=== PATIENT | male | born 1990 | race Caucasian/White ===

== ENCOUNTER 2017-05-19 07:37 | Outpatient (CLI) | payer OTHER ==
--- NOTE | 2017-05-19 10:55 | MRI Report ---
EXAM: LEFT ELBOW MRI WITHOUT CONTRAST EXAM DATE: 05/19/2017 08:37 AM. CLINICAL HISTORY: Left elbow biceps strain. ? Avulsion or strain of the muscle. COMPARISON: None. TECHNIQUE: Multiplanar, multisequence T1-weighted and fluid-sensitive sequences of the elbow without contrast. Other: None. FINDINGS: Bones: No fractures or subluxations. No marrow edema. No bone lesions. Articular Cartilage: Unremarkable. Ligaments: The ulnar collateral, lateral ulnar collateral, radial collateral, and annular ligaments a re intact. Tendons: The common extensor tendon appears normal. The distal biceps, brachialis, and triceps tendon s are unremarkable. The common flexor origin has increased T2 signal at its insertion. Musculature: There is increased T2 signal in the pronator teres and the common flexor origin consiste nt with a grade 1 strain. The medial collateral ligament complex appears unremarkable. The remaining muscles appear normal. Other: The cubital tunnel and ulnar nerve are unremarkable. No effusion. The subcutaneous tissues are unremarkable. IMPRESSION: 1. Grade 1 strain of the pronator teres and common flexor origin. 2. Biceps, triceps and brachialis appear normal. [facility] Referring Provider Line: [phone] SITE ID: [id number]
== END 2017-05-19 07:38 | disposition home or self-care (01) ==
LOC: DI 07:37
PROVIDERS: ATTEND Radiology Diagnostic Radiology
DX: S56.812A Strain of other muscles, fascia and tendons at forearm level, left arm, initial encounter (principal)

== ENCOUNTER 2017-07-06 10:56 | Emergency (ER) | payer OTHER ==
--- NOTE | 2017-07-06 11:46 | XRAY Preliminary Report ---
Exam: XR ANKLE 3 VIEW LT IMPRESSION: Soft tissue swelling; negative for fracture, bony injury or subluxation in the ankle radi ography. [facility] SITE ID: [id number]
--- NOTE | 2017-07-06 11:46 | XRAY Report ---
EXAM: LEFT ANKLE RADIOGRAPHY EXAM DATE: 07/06/2017 11:38 AM. CLINICAL HISTORY: Trauma. COMPARISON: None. TECHNIQUE: 3 views. FINDINGS: Bones: No fractures or bone lesions. Joints: No effusion. No subluxations. The ankle mortise is normally aligned. Soft Tissues: Diffuse mild ankle soft tissue swelling. IMPRESSION: Soft tissue swelling; negative for fracture, bony injury or subluxation in the ankle radi ography. [facility] Referring Provider Line: [phone] SITE ID: [id number]
--- NOTE | 2017-07-06 11:47 | XRAY Report ---
EXAM: LEFT FOOT RADIOGRAPHY EXAM DATE: 07/06/2017 11:38 AM. CLINICAL HISTORY: Trauma. COMPARISON: None. TECHNIQUE: 3 views. FINDINGS: Bones: No fractures or bone lesions. Joints: N no subluxations. Soft Tissues: There is diffuse mid-distal foot soft tissue swelling without radiopaque foreign body. IMPRESSION: Soft tissue swelling; negative for fracture, bony injury or radiopaque foreign body in th e left foot radiography. [facility] Referring Provider Line: [phone] SITE ID: [id number]
--- NOTE | 2017-07-06 12:55 | ED Physician Documentation ---
PD HPI LOWER EXT INJURY - Stated complaint Stated Complaint: LT FT INJURY - Chief complaint Chief Complaint: Ext Problem - History obtained from History obtained from: Patient, Family - History of Present Illness PD HPI LOW EXT INJURY LOCATION: Left, Foot Type of injury: Fall, Twist Where injury occurred: Street Timing - onset: Today Timing - duration: Minutes Timing - details: Abrupt onset, Still present Improved by: Rest, Ice, Immobilization Worsened by: Moving, Palpating Associated symptoms: Swelling. No: Weakness, Numbness Contributing factors: No: Anticoagulated Similar symptoms before: Has not had sx before Recently seen: Not recently seen - Additional information Additional information: 26-year-old male was skateboarding and went up on the side of the ramp and fell off of the ramp onto his left knee and twisted his foot underneath him. He has a lot of swelling on the dorsum of the foot and he is unable to bear weight. Review of Systems Constitutional: denies: Fever Eyes: denies: Decreased vision Ears: denies: Ear pain Nose: denies: Congestion Throat: denies: Sore throat Respiratory: denies: Cough GI: denies: Vomiting Skin: denies: Rash Musculoskeletal: reports: Extremity pain, Extremity swelling, Pain with weight bearing. denies: Neck pain, Back pain Neurologic: denies: Generalized weakness, Focal weakness, Numbness PD PAST MEDICAL HISTORY - Past Medical History Past Medical History: No - Past Surgical History Past Surgical History: Yes Ortho: Other - Present Medications Home Medications: Ambulatory Orders Medication Instructions Recorded Confirmed No Known Home Medications [No 07/06/17 07/06/17 Known Home Medications] - Allergies Allergies/Adverse Reactions: Allergies Allergy/AdvReac Type Severity Reaction Status Date / Time No Known Drug Allergies Allergy Verified 07/06/17 11:01 - Social History Does the pt smoke?: No Smoking Status: Never smoker Does the pt drink ETOH?: Yes Does the pt have substance abuse?: No - Immunizations Immunizations are current?: Yes PD ED PE NORMAL - Vitals Vital signs reviewed: Yes (normal ) - General General: Alert and oriented X 3, No acute distress, Well developed/nourished - HEENT HEENT: Atraumatic, PERRL, EOMI - Respiratory Respiratory: No respiratory distress - Derm Derm: Normal color, Warm and dry, No rash - Extremities Extremities: No deformity, Other (There is marked swelling to the dorsum of the left foot. There is no break in the skin. There is no significant tenderness to the medial or lateral malleoli. There is pain to the anterior ankle with flexion /extention of the foot. Distal n/v components are intact . The left knee is without swelling and a small abrasion. The ligaments are stable to testing. ) - Neuro Neuro: No motor deficit, No sensory deficit Eye Opening: Spontaneous Motor: Obeys Commands Verbal: Oriented GCS Score: 15 - Psych Psych: Normal mood, Normal affect Results - Vitals Vitals: Vital Signs - 24 hr 07/06/17 07/06/17 10:59 13:28 Temperature 36.3 C L Heart Rate 70 76 Respiratory 16 Rate Blood Pressure 107/37 L 110/72 O2 Saturation 100 Oxygen O2 Source Room air - Rads (name of study) left foot Radiology: Prelim report reviewed (Impression: Soft tissue swelling; negative for fracture, bony injury or radiopaque foreign body in the left foot radiography.), EMP read indepedently, See rad report Left ankle Radiology: Prelim report reviewed (Impression: Soft tissue swelling; negative for fracture, bony injury or subluxation of the ankle radiography.), EMP read indepedently, See rad report Procedures - Splint (location) left foot Splint applied by: Tech Type of splint: Fiberglass, Posterior Other: Patient tolerated well, No complications, Neurovascular intact, Good alignment, Crutches provided PD MEDICAL DECISION MAKING - ED course Complexity details: reviewed results, re-evaluated patient, considered differential, d/w patient, d/w family ED course: 26-year-old male with acute left foot injury has a lot of swelling to the dorsum of the foot he has no evidence of fracture on x-ray examination he is placed into a posterior splint and onto crutches. He is diagnosed with a sprain of his foot. Departure - Departure Disposition: 01 Home, Self Care Clinical Impression: Sprain of left foot Qualifiers: Encounter type: initial encounter Qualified Code(s): S93.602A - Unspecified sprain of left foot, initial encounter Instructions: ED Sprain Ankle W X Ray, ED Sprain Foot Follow-Up: ERIBERTO Ritchie [Provider Group] Discharge Date/Time: 07/06/17 13:28
[2017-07-06 13:30] VITALS: BP 110/72
== END 2017-07-06 13:28 | disposition home or self-care (01) ==
LOC: ED 10:56
DX: S93.602A Unspecified sprain of left foot, initial encounter (principal); V00.131A Fall from skateboard, initial encounter; Y93.51 Activity, roller skating (inline) and skateboarding; Y92.488 Other paved roadways as the place of occurrence of the external cause
CPT/HCPCS: 29505; 99283

== ENCOUNTER 2017-07-23 21:33 | Emergency (ER) | payer OTHER ==
[2017-07-23 22:01] LABS: BASOPHILS % (AUTO) 0.4 %; EOSINOPHILS # (AUTO) 0.2 10^3/uL (0.0-0.7); EOSINOPHILS % (AUTO) 2.2 %; HGB - HEMOGLOBIN 13.5 g/dL (14.0-18.0); LYMPHOCYTES % (AUTO) 20.2 %; MEAN CORPUSCULAR HEMOGLOBIN 30.4 pg (27.0-31.0); MEAN CORPUSCULAR HGB CONC 34.2 g/dL (32.0-36.0); MEAN PLATELET VOLUME 9.2 fL (7.4-11.4); MONOCYTES # (AUTO) 0.9 10^3/uL (0.0-1.0); NEUTROPHILS # (AUTO) 6.6 10^3/uL (1.5-6.6); NEUTROPHILS % (AUTO) 68.2 %; PLT - PLATELET COUNT 154 10^3/uL (130-450); RED BLOOD COUNT 4.44 10^6/uL (4.70-6.10); WHITE BLOOD COUNT 9.7 x10^3/uL (4.8-10.8)
[2017-07-23 22:12] LABS: ALBUMIN 4.5 g/dL (3.2-5.5); ALBUMIN/GLOBULIN RATIO 1.3 (1.0-2.2); BILIRUBIN,TOTAL 0.7 mg/dL (0.2-1.0); CALCIUM 9.5 mg/dL (8.5-10.3); CREATININE 1.3 mg/dL (0.6-1.2)
--- NOTE | 2017-07-23 22:52 | Ultrasound Report ---
EXAM: ABDOMEN ULTRASOUND LIMITED, RUQ EXAM DATE: 07/23/2017 10:44 PM. CLINICAL HISTORY: Right upper quadrant pain after eating. COMPARISON: None. FINDINGS: Liver: Echotexture within normal limits without suspicious abnormality seen. Main portal vein flow: H epatopetal. Gallbladder: No stones, wall thickening, or sonographic Reilly's sign. Biliary System: CBD measures 5 mm. No intrahepatic or extrahepatic ductal dilatation. Other: No right hydronephrosis. IMPRESSION: Negative right upper quadrant ultrasound. [facility] Referring Provider Line: [phone] SITE ID: [id number]
--- NOTE | 2017-07-23 23:05 | ED Physician Documentation ---
PD HPI ABD PAIN - Stated complaint Stated Complaint: ABD PX/POST SURGERY - Chief complaint Chief Complaint: Abd Pain - History obtained from History obtained from: Patient, Family - History of Present Illness Timing - onset: Today Timing - details: Abrupt onset Quality: Cramping, Aching Location: RUQ Worsened by: Eating Associated symptoms: Nausea. No: Fever, Vomiting, Diarrhea, Constipation Similar symptoms before: Has not had sx before Recently seen: Not recently seen - Additional information Additional information: Patient is a 26 year old s/p surgery for a lis franc fracture who is presenting to the emergency department for abdominal pain. patient was eating steak this evening when he developed right upper quadrant pain. Patient states that he is also on narcotics and has not had a bowel movement in 3 days. Review of Systems Constitutional: denies: Fever, Chills Eyes: reports: Reviewed and negative Ears: reports: Reviewed and negative Nose: reports: Reviewed and negative Throat: reports: Reviewed and negative Cardiac: denies: Chest pain / pressure, Palpitations Respiratory: denies: Cough GI: reports: Abdominal Pain, Constipation. denies: Nausea, Vomiting : denies: Dysuria Skin: reports: Reviewed and negative Musculoskeletal: reports: Extremity pain, Extremity swelling Immunocompromised: denies: Immunocompromised PD PAST MEDICAL HISTORY - Past Surgical History Past Surgical History: Yes Ortho: Other - Present Medications Home Medications: Ambulatory Orders Medication Instructions Recorded Confirmed Acetaminophen 325 mg PO 07/23/17 Aspirin 325 mg PO 07/23/17 Ondansetron [Zuplenz] 4 mg PO 07/23/17 oxyCODONE [Roxicodone] 5 mg PO Q4-6H 07/23/17 07/23/17 Ondansetron Odt [Zofran] 4 mg TL Q6H PRN #20 tablet 07/24/17 - Allergies Allergies/Adverse Reactions: Allergies Allergy/AdvReac Type Severity Reaction Status Date / Time No Known Drug Allergies Allergy Verified 07/23/17 21:55 - Social History Does the pt smoke?: No Smoking Status: Never smoker Does the pt drink ETOH?: Yes Does the pt have substance abuse?: No - Immunizations Immunizations are current?: Yes PD ED PE NORMAL - General General: Alert and oriented X 3, No acute distress - HEENT HEENT: Atraumatic, PERRL - Cardiac Cardiac: RRR, No murmur - Respiratory Respiratory: No respiratory distress - Derm Derm: Normal color, No rash - Extremities Extremities: No deformity, No edema - Neuro Neuro: Alert and oriented X 3, No motor deficit, Normal speech - Psych Psych: Normal mood PD ED PE EXPANDED - HEENT HEENT: Dry mucous membranes - Abdomen Abdomen: Tender to palpation, Generalized/diffuse. No: Rebound, Guarding Results - Vitals Vitals: Vital Signs - 24 hr 07/23/17 07/23/17 07/23/17 21:37 23:19 23:50 Temperature 36.9 C Heart Rate 72 66 65 Respiratory 18 16 16 Rate Blood Pressure 128/74 148/95 H 123/75 O2 Saturation 100 100 100 Oxygen O2 Source Room air - Labs Labs: Laboratory Tests 07/23/17 07/23/17 21:50 21:50 WBC 9.7 RBC 4.44 L Hgb 13.5 L Hct 39.5 L MCV 89.0 MCH 30.4 MCHC 34.2 RDW 13.0 Plt Count 154 MPV 9.2 Neut # 6.6 Lymph # 2.0 [place] # 0.9 Eos # 0.2 Baso # 0.0 Absolute Nucleated RBC 0.00 Nucleated RBC % 0.0 Sodium 138 Potassium 3.6 Chloride 98 L Carbon Dioxide 29 Anion Gap 11.0 BUN 12 Creatinine 1.3 H Estimated GFR (MDRD) 68 L Glucose 102 H Calcium 9.5 Total Bilirubin 0.7 AST 80 H ALT 25 Alkaline Phosphatase 63 Total Protein 8.0 Albumin 4.5 Globulin 3.5 Albumin/Globulin Ratio 1.3 Lipase 31 - Rads (name of study) abd ultrasound Radiology: Final report received (normal) x-ray Radiology: Final report received (constipation, possible ileus) PD MEDICAL DECISION MAKING - ED course Complexity details: reviewed old records, reviewed results, re-evaluated patient , considered differential, d/w patient, d/w family ED course: Patient was seen and examined at bedside. iv access was gained and labs were drawn. imaging was ordered. patient's imagine showed no gallbladder disease but did show that the patient was consitpated. Patient required no further inpatient work up and was stable for discharge with outpatient follow up. Departure - Departure Disposition: 01 Home, Self Care Clinical Impression: Constipation due to opioid therapy Condition: Good Instructions: ED Constipation Follow-Up: PILY CHANDLER [Primary Care Provider] - As Needed Comments: Your symptoms today are being caused by constipation. It is important to stay well hydrated and if possible decrease the amount of opiod pain medication. You should continue with the stool softeners and you may need to take a laxitive. You should follow up with your doctor for further can and you may return to the emergency department at any time for new, worsening or uncontrollable symptoms. Discharge Date/Time: 07/23/17 23:50
--- NOTE | 2017-07-23 23:37 | XRAY Report ---
EXAM: ABDOMINAL SERIES AND PA CHEST EXAM DATE: 07/23/2017 11:20 PM. CLINICAL HISTORY: No bm post surgery. COMPARISON: None. TECHNIQUE: 2 views abdomen and 1 view chest. FINDINGS: CHEST: Lungs/Pleura: No focal opacities. No effusion or pneumothorax. Mediastinum: Within exam limitations, cardiomediastinal contour is normal. ABDOMEN: Bowel Gas Pattern: There is a short segment of mildly dilated left upper quadrant small bowel. Above average volume of stool throughout the colon. Free Air: None. Other: None. IMPRESSION: 1. Above average stool burden suggesting constipation. 2. Short segment of mildly dilated left upper quadrant small bowel likely postoperative ileus. 3. Normal chest. [facility] Referring Provider Line: [phone] SITE ID: [id number]
--- NOTE | 2017-07-23 23:37 | XRAY Preliminary Report ---
Exam: XR ABDOMEN ACUTE IMPRESSION: 1. Above average stool burden suggesting constipation. 2. Short segment of mildly dilated left upper quadrant small bowel likely postoperative ileus. 3. Normal chest. [facility] SITE ID: [id number]
[2017-07-23 23:53] VITALS: BP 123/75
[2017-07-24] MEDS ORDERED: ONDANSETRON ODT 4 MG Prepack 2 TL PRN (00:51)
== END 2017-07-23 23:50 | disposition home or self-care (01) ==
LOC: ED 21:33
DX: R10.11 Right upper quadrant pain (principal); K59.03 Drug induced constipation; T40.2X5A Adverse effect of other opioids, initial encounter; Z79.82 Long term (current) use of aspirin
CPT/HCPCS: 36415; 74022; 76705; 80053; 83690; 85025; 99283

== ENCOUNTER 2017-07-24 01:40 | Outpatient (CLI) | payer OTHER | END 2017-07-24 01:41 | disposition short-term general hospital (02) | LOC: EMS 01:40 | PROVIDERS: ATTEND Surgery | DX: R10.11 Right upper quadrant pain (principal) | CPT/HCPCS: A0425; A0429; A0888 ==